=== PATIENT | female | born 1995 | race Two or more races ===

== ENCOUNTER 2024-05-11 23:43 | Observation (INO) | payer MEDICAID, SELFPAY ==
[2024-05-11 23:55] VITALS: BMI 43.0
[2024-05-12 00:11] VITALS: BP 122/65; PULSE 89; RESP 18; RESP 98; TEMP 36.8
[2024-05-12 00:17] VITALS: TEMP 36.8
== END 2024-05-12 01:10 | disposition home or self-care (01) ==
PROVIDERS: Admitting Provider Specialist; Visit Provider Specialist
DX: O46.93 Antepartum hemorrhage, unspecified, third trimester (principal); O26.893 Other specified pregnancy related conditions, third trimester; R10.30 Lower abdominal pain, unspecified; Z3A.39 39 weeks gestation of pregnancy
CPT/HCPCS: 59899

== ENCOUNTER 2024-05-12 06:43 | Inpatient (IN) | payer MEDICAID, SELFPAY ==
[2024-05-12] VITALS (20 sets, daily range): BP systolic 0–146; BP diastolic 0–83; PULSE 75–109; RESP 16–98; TEMP 36.6–36.8; O2SAT 97–98; BMI 42.5
--- NOTE | 2024-05-12 07:16 | ESHP_ITS ---
RE: LC POWELL : 1995 DATE OF ADMISSION: 05/12/2024 HISTORY OF PRESENT ILLNESS: This is a 28-year-old 4, para 1-0-2-1 with a due date of 05/14/2024 with intrauterine at 39 weeks and 5 days. She presents to labor and delivery complaining of contractions and is noted to be in early labor. The patient's care was complicated by a positive TYRONE and positive DIRECTOR TELEVISION, blood test during workup for recurrent loss. The patient was referred to the disease management nurse who said there were no signs of mixed connective tissue disease and the patient has been asymptomatic throughout her . Maternal medicine did an ultrasound on 01/27, which showed normal anatomy. The patient recently had a 24-hour urine collection in the office on 05/09 due to urinalysis showing +2 urine protein; however, the 24-hour urine showed 170 mg of protein and her blood pressures have been normal. She denies any headache, change in vision, or right upper quadrant pain. She came in for contractions. She denies any leaking or bleeding. She reports normal movements. ALLERGIES: NO KNOWN DRUG ALLERGIES. MEDICATIONS: 1. multivitamin 1 p.o. daily. 2. Aspirin 81 mg 1 p.o. daily. PAST MEDICAL HISTORY: Positive TYRONE suggesting mixed connective tissue disease, asymptomatic and recurrent loss. SOCIAL HISTORY: She denies any alcohol, drug use, or smoking. She speaks [place]. PAST SURGICAL HISTORY: Denies. FAMILY HISTORY: Paternal grandmother, diabetes. OBSTETRIC HISTORY: In 2012, 40-week, normal vaginal delivery, 5 pound 1 ounce female, no complications; in 12/2019, 6 weeks spontaneous AB, no D and C; in 02/2023, 6 weeks spontaneous AB, no D and C. REVIEW OF SYSTEMS: She denies any headache, change in vision or right upper quadrant pain. She denies any swelling in her face or hands. PHYSICAL EXAMINATION: VITAL SIGNS: Blood pressure 125/72, heart rate 88, respirations 18, temperature 98.2 degrees Fahrenheit, and weight 220 pounds. HEENT: Oropharynx and sclerae are clear. LUNGS: Clear to auscultation bilaterally. HEART: Regular rate and rhythm. ABDOMEN: Gravid. Term size consistent with estimated weight of 7-3/4 pounds. PELVIC: See RN notes. EXTREMITIES: Nontender. SKIN: No gross rashes or lesion. NEUROLOGIC: No focal deficit. ASSESSMENT AND PLAN: Intrauterine at 39 weeks and 5 days, early labor, anticipate spontaneous vaginal delivery. Informed consent was obtained. The patient was made aware of the risks, complications, alternatives, and benefits of the proposed procedure. She agrees. She is aware of the risk of operative vaginal delivery and delivery and agrees with these modes of delivery if indicated. DT: 07:01:07 TT: 07:14:00 Ref: [id number] - TID: [id number]
--- NOTE | 2024-05-12 07:45 | PD.LDPN ---
Documentation for date of: 05/12/24 OB Labor Progress Note Pain Control Comments: none Pelvic Exam Dilation (cm): 7 Effacement (%): 90 station: 0 Amniotic membrane status: Intact Contractions Contraction frequency: q 3-4 min Status status: Category l Assessment and Plan Comments: Anticipate
--- NOTE | 2024-05-12 07:46 | PD.LDHP ---
Documentation for date of: 05/12/24 OB Labor/Induct. HPI History of Present Illness Comments: H and P dictated on STAT line #9 in [facility] [id number] Meds Home Medications and Allergies Allergies Allergy/AdvReac Type Severity Reaction Status Date / Time No Known Allergies Allergy Verified 02/07/23 23:24 OB Exam Physical Exam Vital signs: Temp Pulse Resp BP 98.3 F 85 18 129/72 05/12/24 07:09 05/12/24 07:34 05/12/24 06:43 05/12/24 07:34
[2024-05-12] MEDS: RINGERS LACTATED 1000 ML 1,000 ML 100 ML IV (07:47)
[2024-05-12 07:51] LABS: Basophils % (Auto) 0 % (0-2.5); Eosinophils # (Auto) 0.1 Thou/mm3 (0.0-0.5); Eosinophils % (Auto) 1 % (0-10); Immature Granulocytes % (Auto) 1 % (0-0); Immature Granulocytes Auto 0.13 Thou/mm3 (0.00-0.00); Lymphocytes # (Auto) 1.9 Thou/mm3 (1.0-4.8); Lymphocytes % (Auto) 19 % (10-50); Mean Corpuscular HGB Conc 33.3 g/dl (31.0-37.0); Mean Corpuscular Hemoglobin 26.3 pg (25.0-35.0); Mean Corpuscular Volume 79 fL (80-100); Monocytes # (Auto) 0.5 Thou/mm3 (0.0-0.8); Monocytes % (Auto) 6 % (0-12); Neutrophils # (Auto) 7.2 Thou/mm3 (1.8-7.7); Neutrophils % (Auto) 73 % (37-80); Nucleated Red Blood Cell % 0 /100 WBC (0); Platelet Count 307 Thou/mm3 (140-440); RDW Standard Deviation 43.4 fL (36.4-46.3); Red Blood Count 4.57 Miln/mm3 (4.00-5.20); White Blood Count 9.9 Thou/mm3 (3.6-11.0)
--- NOTE | 2024-05-12 08:19 | PD.LDPN ---
Documentation for date of: 05/12/24 OB Labor Progress Note Pain Control Comments: None Pelvic Exam Dilation (cm): 8 Effacement (%): 90 station: +1 Amniotic membrane status: Ruptured Comments: scalp electrode applied NO fluid seen. Contractions Contraction frequency: q 3-4 min Status status: Category ll Assessment and Plan Comments: Anticipate .
[2024-05-12 08:28] LABS: Syphilis Nonreactive (Nonreactive)
[2024-05-12] MEDS: OXYTOCIN in NS 20 units 20 UNIT/1,000 ML BAG 125 UNIT IV (09:52)
[2024-05-12] MEDS: LIDOCAINE HCL 1% 20 ML VIAL INFL (10:14)
[2024-05-12 10:26] LABS: Base Excess, Venous Cord Bld -7.5 (-4.5--2.4); pCO2, Venous Cord Blood 52 mmHg (33-44); pH, Venous Cord Blood 7.22 (7.30-7.40); pO2, Venous Cord Blood 29 mmHg (23-35)
[2024-05-12 10:32] LABS: HCO3, Venous Cord 21 mmol/L (16-25)
--- NOTE | 2024-05-12 10:34 | PD.LDDS ---
DS: Providers Provider Date of admission: 05/12/24 07:15 Primary care physician: Physician No Primary/Family Admitting Provider: Goran Morrow MD Attending Provider on Admission: Goran Morrow MD Attending Provider on DC: Goran Morrow MD Discharging Provider: Goran Morrow MD DS: Diagnosis Problem List Completed Was Problem List Reviewed/Reconciled?: Yes Summary/Hosp Course Time Spent with Patient Time attestation: Total time spent providing and/or coordinating discharge services: Exam Vital Signs Temp Pulse Resp BP 98.3 F 94 18 0/0 L 05/12/24 07:09 05/12/24 10:11 05/12/24 06:43 05/12/24 10:30 Discharge Plan Plan Patient Disposition: HOME (Self Care) Patient condition on transfer: Stable Prescriptions/Referrals Prescriptions/Med Rec: New ibuprofen 600 mg tablet 600 mg PO Q6H PRN (Reason: pain) Qty: 30 0RF Referrals: No Primary/Family,Physician [Primary Care Provider] - Patient/Caregiver Discharge Instructions Discharge Activity: activity as tolerated Other Discharge Activity Instructions:: Follow up office 6 weeks. Education Materials: After a Vaginal , Breast Care After Print Language: Indonesian Activity Restrictions/Additional Instructions: Seguimiento en oficina 6 semanas. Stand Alone Forms: Marissa Award Info., Patient Portal Info Letter Vaccines Vaccines Given During Stay: MMR Discharge Order Discharge Orders: Discharge (Routine); Ordered 05/13/24 Ordered By: Goran Morrow Planned Discharge Date 05/13/24
[2024-05-12] MEDS: IBUPROFEN TAB 400 MG TABLET 800 MG PO (10:58)
--- NOTE | 2024-05-12 12:28 | PC.NURSE ---
Dr. Cristhian luciano cath patient @[id number] for 50cc clear yellow urine
[2024-05-12 16:43] LABS: Basophils % (Auto) 0 % (0-2.5); Eosinophils % (Auto) 0 % (0-10); Hematocrit 32.6 % (36.0-46.0); Hemoglobin 10.9 g/dL (12.0-16.0); Immature Granulocytes % (Auto) 1 % (0-0); Immature Granulocytes Auto 0.12 Thou/mm3 (0.00-0.00); Lymphocytes # (Auto) 1.8 Thou/mm3 (1.0-4.8); Lymphocytes % (Auto) 9 % (10-50); Mean Corpuscular HGB Conc 33.4 g/dl (31.0-37.0); Mean Corpuscular Hemoglobin 26.3 pg (25.0-35.0); Mean Corpuscular Volume 79 fL (80-100); Monocytes # (Auto) 0.7 Thou/mm3 (0.0-0.8); Monocytes % (Auto) 4 % (0-12); Neutrophils # (Auto) 16.6 Thou/mm3 (1.8-7.7); Neutrophils % (Auto) 86 % (37-80); Nucleated Red Blood Cell % 0 /100 WBC (0); Platelet Count 310 Thou/mm3 (140-440); RDW Standard Deviation 43.8 fL (36.4-46.3); Red Blood Count 4.14 Miln/mm3 (4.00-5.20); White Blood Count 19.3 Thou/mm3 (3.6-11.0)
[2024-05-13 05:11] VITALS: BP 115/75; PULSE 75; RESP 18; TEMP 36.5; O2SAT 99
--- NOTE | 2024-05-13 07:04 | ESPR_ITS ---
RE: LC POWELL : 1995 DATE OF SERVICE: 05/13/2024 SUBJECTIVE: day #1, the patient denies any problem or complaint. She is voiding, ambulating, tolerating a regular diet, passing flatus. She denies any excessive vaginal bleeding. She denies any dizziness or lightheadedness. She denies any chest pain, palpitations, shortness of breath or lower extremity pain. OBJECTIVE: Vital Signs: Blood pressure 115/75 mmHg, heart rate 75 BPM, respirations 18, temperature 97.6, pulse oximetry is 99% on room air. Lungs: Clear to auscultation bilaterally. Heart: Regular rate and rhythm. Abdomen: Fundus is firm. Extremities: Nontender. LABORATORY DATA: Hemoglobin pre-delivery is 12.0 g/dL, post-delivery is 10.9 g/dL. ASSESSMENT: day #1 status post vacuum-assisted vaginal delivery. PLAN: Remove vaginal packing. Possible discharge home when baby is cleared. Discharge instructions given. Follow up in the office in 6 weeks. DT: 06:23:02 TT: 07:03:00 Ref: [id number] - TID: [id number]
[2024-05-13 08:40] VITALS: BP 113/65; PULSE 94; RESP 16; TEMP 36.6; O2SAT 97
[2024-05-13] MEDS: IBUPROFEN TAB 400 MG TABLET 800 MG PO (08:49)
[2024-05-13] MEDS: MEASLES, MUMPS & RUBELLA VACC 0.5 ML VIAL SCi (11:58)
[2024-05-13 12:00] VITALS: BP 108/70; PULSE 93; RESP 16; TEMP 36.9
--- NOTE | 2024-05-13 20:21 | PD.LDDELS ---
Vacuum Assisted Delivery General Patient Counseled by physician:: Yes Informed consent to patient:: Yes Estimated weight:: 7 lb 8 oz Cervical dilation:: fully dilated station:: +3 position:: OA Molding:: No Caput:: Yes Vacuum Application Vacuum type:: Mityvac Vacuum application:: flexing median Total vacuum time (min):: 3 Maximum pressure (cm Hg):: 50 Cup Placement Flexion point identified:: Yes Cup approp. for head position:: Yes Maternal tissue excluded:: Yes Vacuum Procedure Number of pulls (contractions):: 1 Number of pop-offs:: 0 Recommended range maintained:: Yes Vacuum reduced between pulls:: Yes Advancement made each pull:: Yes Vacuum successful:: Yes Immediate Evaluation Immediate assessment:: no apparent injury Hand-off care to:: model maker fiberglass Data (Gao) Data : 4 Para: 1 Term: 1 : 0 : 2 Delivery Data (Gao) Labor Data ROM Date: 05/12/24 ROM Time: 07:15 Rupture Type: AROM Delivery Data EDC: 05/14/24 EDC calculated by:: LMP/early US confirmation Labor Onset Stage 1 Date: 05/12/24 Labor Onset Stage 1 Time: 07:30 Labor Onset Stage 2 Date: 05/12/24 Labor Onset Stage 2 Time: 08:48 Delivery Date: 05/12/24 Delivery Time: 09:51 Gestational age (weeks): 39 Gestational age (days): 5 Placenta Delivery Date: 05/12/24 Placenta Delivery Time: 10:00 Delivered by: Goran Morrow Delivery nurse: Diamante Garcia Other staff at delivery: Nursery Nurse Other staff at delivery: Baby Care/Shredding Machine Knife Changer Other staff at delivery: Megan Sainz Other staff at delivery: MD Shikha, Car[place] Delivery Method Delivery: Vaginal Delivery Type: Vacuum Assisted Presentation: Vertex Position: OA Anesthesia Type Primary Anesthesia: None Delivery Room Medications Other Intrapartum Medications: Yes Placenta Placenta Delivery: Spontaneous Placenta Cultures Obtained: No Placenta Sent for Examination: No Cord Sample: Cord Gases Venous Lacerations #1: Perineal: 2nd degree Labial: 2nd degree bilateral labial Umbilical Cord Umbilical Vessels: 3 Nuchal Cord: x1 Body Cord: None Additional Procedures Vacuum assisted vaginal delivery Complications Complications: None Regan Data (Gao) Regan Data Gender: Female Identification Band Number: [id number] Infant Weight Grams: 3425 1 Minute Total: 8 5 Minute Total: 9
== END 2024-05-13 13:15 | disposition home or self-care (01) | DRG 560 ==
LOC: S4SX 09:55 → S4NX 12:28
PROVIDERS: Admitting Provider Specialist; Visit Provider Specialist
DX: O69.81X0 Labor and delivery complicated by cord around neck, without compression, not applicable or unspecified (principal); Z37.0 Single live birth; Z3A.39 39 weeks gestation of pregnancy; Z23 Encounter for immunization; O70.1 Second degree perineal laceration during delivery; N96 Recurrent pregnancy loss; Z79.82 Long term (current) use of aspirin
CPT/HCPCS: 36415; 59025; 82803; 85025; 86780; 86850; 86900; 86901; 90707; J2590; J3490; J7120; A9270